=== PATIENT | male | born 1990 | race Caucasian/White ===

== ENCOUNTER 2018-01-12 19:11 | Emergency (ER) | payer BC, OTHER ==
[~2018-01-12] VITALS: Ht 165.1 cm; Wt 65.8 kg
--- NOTE | 2018-01-12 19:15 | NUR ---
PT BIB FRIEND WITH A C/O N/V/D S/P RETURNING FROM [facility] TODAY. PT JUST FLEW IN AND CAME TO THE ER. PT STATED THAT HE HAS NOT BEEN ABLE TO KEEP FOOD OR WATER DOWN DURING HIS FLIGHT HOME. PT IS DRY HEAVING, GUARDING HIS ABD AND C/O SEVERE CRAMPING PAIN 05/28.
[2018-01-12] MEDS ORDERED: IV NS 0.9% 1,000 ML BAG IV ONE ×2 (19:30→21:00)
[2018-01-12] MEDS ORDERED: MORPHINE SULFATE INJ 2 MG/ML DISP.SYRIN IV ONE (19:30)
[2018-01-12] MEDS ORDERED: ONDANSETRON HCL/PF 4 MG/2 ML VIAL IVP ONE (19:30)
[2018-01-12] MEDS ORDERED: MORPHINE SULFATE INJ 4 MG/ML DISP.SYRIN ONE (19:36)
[2018-01-12] MEDS ORDERED: ONDANSETRON HCL/PF 4 MG/2 ML VIAL ONE (19:36)
[2018-01-12 19:41] LABS: BASOPHILS # (AUTO) 0.5 /CMM (0.0-0.2); BASOPHILS % (AUTO) 2.5 % (0.0-2.0); EOSINOPHILS % (AUTO) 0.1 % (0.0-6.0); HEMATOCRIT 57 % (39-51); LYMPHOCYTES % (AUTO) 5.2 % (20.0-44.0); MEAN CORPUSCULAR HGB CONC 35 g/dl (31.0-36.0); MEAN CORPUSCULAR VOLUME 87 fL (80-96); MONOCYTES # (AUTO) 1.1 /CMM (0.1-1.30); MONOCYTES % (AUTO) 5.8 % (2.0-12.0); NEUTROPHILS # (AUTO) 17.1 /CMM (1.8-8.9); NEUTROPHILS % (AUTO) 86.4 % (43.0-81.0); PLATELET COUNT (AUTO) 349 /CMM (150-450); RDW COEFFICIENT OF VARIATION 12.2 (11.5-15.0); RED BLOOD CELL COUNT(AUTO) 6.59 MIL/uL (4.5-6.0); WHITE BLOOD COUNT (AUTO) 19.7 K/uL (4.3-11.0)
[2018-01-12 19:46] LABS: HEMOGLOBIN 20.2 g/dL (13.5-17.5)
[2018-01-12 19:57] LABS: BILIRUBIN,DIRECT 0.2 mg/dL (0.0-0.2); BILIRUBIN,TOTAL 1.1 mg/dL (0.2-1.0); POTASSIUM 3.1 mmol/L (3.5-5.1); TOTAL PROTEIN, SERUM 7.8 g/dL (6.4-8.2)
--- NOTE | 2018-01-12 20:28 | NUR ---
PT APPEARS TO BE RESTING COMFORTABLY. PT STATED THAT HIS PAIN IS STARTING TO COME BACK.
[2018-01-12] MEDS ORDERED: LIDOCAINE VISCOUS 2% UD 15 ML UDC MM ONE (21:00)
[2018-01-12] MEDS ORDERED: MAG HYDROX/AL HYDROX/SIMETH 30 ML UDC PO ONE (21:00)
[2018-01-12] MEDS ORDERED: FAMOTIDINE/PF INJ 20 MG/2 ML VIAL IV ONE ×2 (21:00→21:28)
[2018-01-12] MEDS ORDERED: LIDOCAINE VISCOUS 2% UD 15 ML UDC ONE (21:28)
[2018-01-12] MEDS ORDERED: MAG HYDROX/AL HYDROX/SIMETH 30 ML UDC ONE (21:28)
[2018-01-12] MEDS ORDERED: POTASSIUM CHLORIDE 20 MEQ TAB.PRT.SR PO ONE ×2 (21:56→22:00)
[2018-01-12] MEDS ORDERED: POTASSIUM CL. PREMIX PERIPHER. 100 ML ONE (21:57)
--- NOTE | 2018-01-12 22:09 | NUR ---
PT REC'D MEDICATION ORDERED.
[2018-01-12] MEDS: POTASSIUM CL. PREMIX PERIPHER. 50 ML IV SCH ×2 (22:29→23:37)
[2018-01-13 00:08] LABS: BASOPHILS % (AUTO) 0.2 % (0.0-2.0); HEMATOCRIT 47 % (39-51); HEMOGLOBIN 16.3 g/dL (13.5-17.5); LYMPHOCYTES # (AUTO) 0.9 /CMM (0.8-4.8); LYMPHOCYTES % (AUTO) 7.5 % (20.0-44.0); MEAN CORPUSCULAR HGB CONC 34 g/dl (31.0-36.0); MEAN CORPUSCULAR VOLUME 87 fL (80-96); MONOCYTES # (AUTO) 0.8 /CMM (0.1-1.30); MONOCYTES % (AUTO) 6.3 % (2.0-12.0); NEUTROPHILS # (AUTO) 10.8 /CMM (1.8-8.9); PLATELET COUNT (AUTO) 305 /CMM (150-450); RDW COEFFICIENT OF VARIATION 13.2 (11.5-15.0); RED BLOOD CELL COUNT(AUTO) 5.44 MIL/uL (4.5-6.0); WHITE BLOOD COUNT (AUTO) 12.5 K/uL (4.3-11.0)
[2018-01-13 00:32] VITALS: BP 146/81
--- NOTE | 2018-01-13 00:33 | NUR ---
Patient discharged to home in stable condition. Written and verbal after care instructions given. Patient verbalizes understanding of instruction.IV removed. Catheter intact and site benign. Pressure and 4x4 applied to site. No bleeding noted. PT ambulatory with a steady gait VITAL SIGNS WITHIN NORMAL LIMITS.
--- NOTE | 2018-01-24 07:12 | NUR ---
FOR 1 L NS IVPB LAC 20G. END TIME IS 4117
== END 2018-01-13 00:32 | disposition home or self-care (01) ==
LOC: ER 19:13
DX: E87.6 Hypokalemia (principal); R11.2 Nausea with vomiting, unspecified; R19.7 Diarrhea, unspecified
CPT/HCPCS: 36415; 80048-TC; 80076-TC; 83690-TC; 85025-TC; A4606; J2270; J2405; J3480; J3490; J7030; Z7610